=== PATIENT | female | born 2005 | race Caucasian/White ===

== ENCOUNTER 2024-12-04 03:53 | Emergency (ER) | payer SELFPAY ==
[~2024-12-04] VITALS: Ht 165.1 cm; Wt 56.0 kg
[2024-12-04 03:59] VITALS: O2SAT 100
[2024-12-04] MEDS: LIDOCAINE HCL/PF 1% 10 MG/ML 5ML VIAL INFIL ONE (04:45)
[2024-12-04] MEDS: BACITRACIN ZINC OINT UDPKT TOP ONE (04:45)
[2024-12-04] MEDS ORDERED: BO1 TP (05:16)
[2024-12-04] MEDS ORDERED: ACET-2708 MT (05:16)
[2024-12-04] MEDS: TETANUS, DIPHTHERIA, PERTUSSIS VAC/PF 0.5ML (>10YR OLD) IM ONE (05:20)
[2024-12-04 05:31] VITALS: BP 110/67; PULSE 81; RESP 15; TEMP 36.8; O2SAT 100
== END 2024-12-04 05:31 | disposition home or self-care (01) ==
LOC: ER 03:53
DX: S01.111A Laceration without foreign body of right eyelid and periocular area, initial encounter (principal); Z79.899 Other long term (current) drug therapy; W18.30XA Fall on same level, unspecified, initial encounter; Y93.89 Activity, other specified; Y92.89 Other specified places as the place of occurrence of the external cause; Y99.8 Other external cause status
CPT/HCPCS: 99283; 90715; 12013; 90471; J2003